=== PATIENT | male | born 1965 | race Caucasian/White ===

== ENCOUNTER 2019-10-18 19:09 | Inpatient (IN) | payer SELFPAY ==
--- NOTE | ~2019-10-18 | CT_ITS ---
EXAMINATION: CT abdomen pelvis w con DATE: 10/19/2019 20:30 INDICATION: Cirrhosis TECHNIQUE: Computed tomography (CT) of the abdomen and pelvis was performed with 100 mL Omnipaque-350 intravenous contrast. Automated exposure control and iterative reconstruction technique were employe d. The dose-length product was 220.78 mGy-cm. COMPARISON: None FINDINGS: Lung bases are clear. Heart size is normal. No pericardial or pleural effusion. Nasogastric tube tip in the body of the stomach. Heterogeneous attenuation of the liver with nodular surface contour likel y combination of cirrhosis and diffuse hepatic steatosis. The hepatic vasculature extends to the zenon ons of heterogeneous attenuation without evident architectural distortion to suggest malignant mass. Recanalization of the umbilical vein as well as dilation of the coronary vein and prominent gastroeso phageal collaterals consistent with secondary portal venous hypertension. Spleen remains normal in si ze with multiple small calcific a cyst consistent with old granulomatous disease. Gallbladder, pancre as, bilateral adrenal glands and kidneys are normal. No bowel obstruction. Normal appendix. There is diffuse wall thickening of the colon most prominent in the proximal colon which could be due to colit is or more likely hepatic colopathy. Small amount of ascites in the pelvis. Bladder is normal. No pat hologically enlarged abdominal or pelvic lymphadenopathy. Small amount of scattered nonhemodynamicall y significant atherosclerotic plaque along the aorta and several of its major branch vessels. Bones a re unremarkable. IMPRESSION: 1. Combination of cirrhosis and diffuse hepatic steatosis with secondary portal venous hypertension i ncluding recanalized umbilical vein and gastroesophageal collaterals. 2. Mild diffuse wall thickening of the colon most likely related to hepatic colopathy although differ ential includes colitis which could be infectious, inflammatory or ischemic in etiology. Reviewed, dictated and finalized at location A. ERCIAL LOAN ASSISTANT IMPRESSION: 1. Combination of cirrhosis and diffuse hepatic steatosis with secondary portal venous hypertension including recanalized umbilical vein and gastroesophageal collaterals. 2. Mild diffuse wall thickening of the colon most likely related to hepatic col opathy although differential includes colitis which could be infectious, inflam matory or ischemic in etiology.
--- NOTE | ~2019-10-18 | XR_ITS ---
EXAMINATION: XR abdomen NG/feed tube insert DATE: 10/18/2019 19:35 INDICATION: Nasogastric tube placement. TECHNIQUE: An upright view of the abdomen was obtained. COMPARISON: None. FINDINGS: There are no dilated loops of bowel. The nasogastric tube tip is in the stomach. The lower abdomen is excluded. IMPRESSION: 1. Nasogastric tube tip in the stomach. Reviewed, dictated and finalized at location A. ST TECHNICIAN
[2019-10-18 19:03] VITALS: BP 129/86; PULSE 128; RESP 24; TEMP 37.1; O2SAT 100
--- NOTE | 2019-10-18 19:13 | ED.NAVMDI ---
HPI - Nausea/Vomiting/Diarrhea General Chief complaint: Nausea/Vomiting/Diarrhea <Claude Benton MD - Last Filed: 10/20/19 00:32> Stated complaint: coffee ground emesis <Claude Benton MD - Last Filed: 10/20/19 00:32> Time Seen by Provider: 10/18/19 19:11 <Claude Benton MD - Last Filed: 10/20/19 00:32> Source: patient and RN notes reviewed <Claude Benton MD - Last Filed: 10/20/19 00:32> Mode of arrival: EMS <Claude Benton MD - Last Filed: 10/20/19 00:32> Limitations: no limitations <Claude Benton MD - Last Filed: 10/20/19 00:32> History of Present Illness HPI Narrative: Pt is a 54 y/o male who presents to the ED, via EMS, with c/o vomiting which began 2 days ago. He states his emesis is dark brown in color and seems to have blood present. Pt also reports jaundice, LOC, decreased appetite, SOB, a burning epigastric ABD pain, hot flashes, a subjective fever, a head injury, and bladder pain. He reports he has a PMHx of liver cirrhosis, but denies having an upper endoscopy done in the past due to this. He does state drinking a couple shots of alcohol this morning, which could have worsened his symptoms. He states he fell while walking to his door today and hit his head on the way down to the floor. Pt denies a PMHx of ulcers or esophageal varices. <Claude Benton MD - Last Filed: 10/20/19 00:32> MD elicited complaint: vomiting <Claude Benton MD - Last Filed: 10/20/19 00:32> Pertinent past history: other (liver cirrhosis) <Claude Benton MD - Last Filed: 10/20/19 00:32> Onset (ago): day(s) (2 days ago) <Claude Benton MD - Last Filed: 10/20/19 00:32> Description of vomiting: bloody and other (dark) <Claude Benton MD - Last Filed: 10/20/19 00:32> Associated abdominal pain: Yes <Claude Benton MD - Last Filed: 10/20/19 00:32> Location of pain: epigastric <Claude Benton MD - Last Filed: 10/20/19 00:32> Radiation: does not radiate <Claude Benton MD - Last Filed: 10/20/19 00:32> Pain consistency: constant <Claude Benton MD - Last Filed: 10/20/19 00:32> Quality: other (burning) <Claude Benton MD - Last Filed: 10/20/19 00:32> Relieving factors: none <Claude Benton MD - Last Filed: 10/20/19 00:32> Context: alcohol abuse <Claude Benton MD - Last Filed: 10/20/19 00:32> Related Data Home medications: Home Medications Medication Instructions Recorded Confirmed No Home Medications 10/19/19 10/19/19 <Claude Benton MD - Last Filed: 10/20/19 00:32> Allergies/Adverse reactions: Allergies Allergy/AdvReac Type Severity Reaction Status Date / Time No Known Allergies Allergy Unverified 10/09/17 01:04 <Claude Benton MD - Last Filed: 10/20/19 00:32> Review of Systems Review of Systems: All systems reviewed & are unremarkable except as noted in HPI and below <Claude Benton MD - Last Filed: 10/20/19 00:32> Constitutional: Constitutional: Reports fever(s) (subjective), Reports poor appetite (decreased) and Reports other (hot flashes) <Claude Benton MD - Last Filed: 10/20/19 00:32> Respiratory: Respiratory: Reports dyspnea <Claude Benton MD - Last Filed: 10/20/19 00:32> Gastrointestinal: Gastrointestinal: Reports abdominal pain (epigastric), Reports vomiting and Reports other (hematemesis) <Claude Benton MD - Last Filed: 10/20/19 00:32> Genitourinary: Genitourinary: Reports other (bladder pain) <Claude Benton MD - Last Filed: 10/20/19 00:32> Neurologic: Reports syncope and Reports other (head injury) <Claude Benton MD - Last Filed: 10/20/19 00:32> [facility] Past Medical History Medical History: Medical History (Updated 10/19/19 @ 21:58 by Imani Garrison NP) Anemia Asthma Cirrhosis Liver cancer <Claude Benton MD - Last Filed: 10/20/19 00:32
[2019-10-18] MEDS: PANTOPRAZOLE SODIUM IV 40 MG VIAL 80 MG IV PUSH (19:30)
[2019-10-18] MEDS: ONDANSETRON INJ 4 MG/2 ML VIAL ×2 (19:32→22:16)
[2019-10-18] MEDS: MORPHINE SULFATE 2 MG/ML INJ (19:32)
[2019-10-18] MEDS: SODIUM CHLORIDE 0.9% IV 1,000 ML 999 ML IV CONT ×2 (19:50→21:36)
[2019-10-18 19:56] LABS: Basophils Percent Auto 0.5 % (0.2-1.2); Hematocrit 29.6 % (42.0-52.0); Hemoglobin 9.9 g/dL (14.0-18.0); Immature Granulocyte Absolute 0.08 K/mm3 (0.00-0.031); Immature Granulocyte Percent A 0.9 % (0-0.5); Lymphocytes Absolute Auto 0.98 K/mm3 (0.9-3.2); Lymphocytes Percent Auto 11.2 % (18.3-44.2); Mean Corpuscular HGB Conc 33.4 g/dl (32-36); Mean Corpuscular Hemoglobin 34.3 pg (26-34); Mean Corpuscular Volume 102.4 fl (80-100); Mean Platelet Volume 10.4 fl (7.4-10.4); Monocytes Absolute Auto 0.8 K/mm3 (0.1-0.6); Monocytes Percent Auto 9.4 % (2.6-8.5); Neutrophils Absolute Auto 6.8 K/mm3 (1.3-6.7); Platelet Count Result 66 k/mm3 (150-375); Red Blood Count 2.89 M/mm3 (4.6-6.20); Red Cell Distribution Width 12.2 % (11.5-14.5); White Blood Count 8.8 K/mm3 (4.5-10.0)
[2019-10-18 20:04] LABS: INR 1.2; Prothrombin Time 15.3 Seconds (11.1-14.7)
[2019-10-18 20:05] LABS: Partial Thromboplastin Time 28.4 SECONDS (22.3-36.8)
[2019-10-18 20:18] LABS: Alanine Aminotransferase 85 U/L (4-50); Albumin Level 3.9 g/dL (3.5-5.1); Alkaline Phosphatase 264 U/L (38-126); Aspartate Amino Transferase 304 U/L (17-59); Bilirubin,Total 10.1 mg/dL (0.2-1.3); Blood Urea Nitrogen 19 mg/dL (9-20); Calcium 8.3 mg/dL (8.4-10.2); Carbon Dioxide 20 mmol/L (22-30); Chloride 88 mmol/L (98-107); Estimated CRCL calculation 104 ml/min; Estimated Glomerular Filt Rate > 60; Glucose 104 mg/dL (75-110); Lipase 72 U/L (23-300); Magnesium 1.4 mg/dL (1.6-2.3); Sodium 134 mmol/L (137-145)
[2019-10-18 20:30] VITALS: BP 130/79; PULSE 111; RESP 17; O2SAT 98
[2019-10-18 21:30] VITALS: BP 122/86; PULSE 107; RESP 19; O2SAT 99
[2019-10-18 22:15] VITALS: BP 143/91; PULSE 102; RESP 17; O2SAT 100
[2019-10-18] MEDS: SODIUM CHLORIDE 0.9% IV 50 ML 500 ML (23:20)
[2019-10-18] MEDS: PROMETHAZINE HCL 25 MG/ML AMPUL 12.5 MG IV PUSH (23:20)
[2019-10-18 23:23] LABS: Hematocrit 25.1 % (42.0-52.0); Hemoglobin 8.5 g/dL (14.0-18.0)
[2019-10-19] VITALS (47 sets, daily range): BP systolic 115–156; BP diastolic 35–124; PULSE 75–130; RESP 14–30; TEMP 36.4–36.6; O2SAT 95–100; BMI 14.6
[2019-10-19] MEDS: ONDANSETRON INJ 4 MG/2 ML VIAL IV PUSH ×3 (03:41→21:26)
[2019-10-19] MEDS: MORPHINE SULFATE 2 MG/ML INJ IV PUSH (03:41)
[2019-10-19] MEDS: SODIUM CHLORIDE 0.9% IV 50 ML 500 ML (03:46)
[2019-10-19] MEDS: LORAZEPAM INJ 2 MG/ML VIAL (04:36)
[2019-10-19 05:11] LABS: Hematocrit 23.4 % (42.0-52.0); Hemoglobin 8.1 g/dL (14.0-18.0)
[2019-10-19] MEDS: SODIUM CHLORIDE 0.9% IV 1,000 ML 150 ML IV CONT ×2 (05:22→22:37)
--- NOTE | 2019-10-19 07:19 | PC.NURSE ---
Called [facility] to check on status of bed. At this time he is currently waiting on a bed for transfer.
--- NOTE | 2019-10-19 07:22 | PC.NURSE ---
Report received from TRENTON Bill, to continue care. Preparing to contact [facility] regarding bed placement/availablility.
[2019-10-19] MEDS: PANTOPRAZOLE SODIUM IV 40 MG VIAL IV PUSH ×2 (07:41→22:40)
--- NOTE | 2019-10-19 13:26 | PC.NURSE ---
Pt called out, had spilled urinal on table and was incontinent of urine. IVF continue , NG tube continues to intermittent low wall suction, draining clear bloody fluid.
--- NOTE | 2019-10-19 15:18 | PC.NURSE ---
Called [facility] to check on bed. Pt is still waiting for bed. [facility] is not sure when they will receive bed orders.
[2019-10-19 16:09] LABS: Hematocrit 25.9 % (42.0-52.0); Hemoglobin 8.6 g/dL (14.0-18.0)
--- NOTE | 2019-10-19 17:03 | PC.NURSE ---
Dr. Barnett at bedside for consultation.
--- NOTE | 2019-10-19 17:05 | PC.NURSE ---
Floor unable to take report, states will call back.
--- NOTE | 2019-10-19 17:29 | WPDGICN ---
Assessment and Plan Additional Plan This is a 54-year-old white male patient I am asked to see at the request of the emergency room. Patient is known to have alcoholic cirrhosis of the liver. He has been boarding in the emergency room for almost 1 day. And is to be admitted for observation. He is pending transfer to [facility]. Patient reports vomiting that has been present for 2-3 days prior to presenting to the hospital. He states he has lost his appetite. He complains of a burning epigastric discomfort. He also complains rather diffuse abdominal pain but his history is very inconsistent. He denies having preop prior endoscopy. It is uncertain whether he has esophageal varices. On NG tube placed in the emergency room reveals blood tinged return. Patient states his past history includes a history of asthma. He is known to be anemic. And he knows he has cirrhosis. Patient takes nose medications at home. He is now on Protonix IV. He is also on an octreotide drip. Physical exam reveals him to be alert. He has scleral icterus. HEENT exam reveals some angiodysplasias on his neck. Lungs reveal clear. Heart is without murmur. Abdominal exam bowel sounds are present soft he has hepatomegaly with liver several finger breaths below the right l costal margin. Laboratory testing reveals total bilirubin 10.1 ,AST 304 ,ALT 85, alk-phos 264. Albumin 3.9 CBC WBC 8.8, hemoglobin 8.6, HCt 25.9, MCV 102. \prothrombin time 15.3 INR 1.2 per Impression 1. Alcoholism. 2. Cirrhosis of liver. 3. Anemia. Is macrocytic. 4. Markedly elevated liver function test. 5. Upper GI bleeding. Blood-tinged NG tube return is noted. Agree that patient may have internal bleeding. He has empirically been started on octreotide and PPI. We will continue these medications. Because of difficulty obtaining history and his apparent confusion serum ammonia level will be obtained. I am somewhat concerned he may have early hepatic encephalopathy. The cause of his heavy alcohol intake we will watch closely for signs of alcohol withdrawal. Transfer to [facility] is still pending and will be accomplished when bed becomes available at that institution. GI Consult Note Consult date/time: 10/19/19 17:29 HPI: Gregor Patel is a 54 year old male [facility] Past Medical History Medical History (Updated 10/19/19 @ 16:04 by Meredith Fernando MD) Anemia Asthma Cirrhosis Liver cancer Social History Social History (Updated 10/18/19 @ 19:30 by Della Dominguez) Smoking packs per day: 0.5 Smoking cigarettes per day: 10.0 Smoking status: Current every day smoker Tobacco type: cigarettes Alcohol intake: current Meds Home Medications and Allergies Allergies Allergy/AdvReac Type Severity Reaction Status Date / Time No Known Allergies Allergy Unverified 10/09/17 01:04 Vital Signs Vital Signs - 24 hr 10/18/19 19:03 10/18/19 20:30 10/18/19 21:30 Temperature 37.1 C Pulse Rate 128 H 111 H 107 H Respiratory Rate 24 H 17 19 Blood Pressure 129/86 130/79 122/86 Pulse Oximetry 100 98 99 10/18/19 22:15 10/19/19 01:31 10/19/19 03:46 Temperature Pulse Rate 102 H 101 H 96 Respiratory Rate 17 18 18 Blood Pressure 143/91 H 136/74 125/99 H Pulse Oximetry 100 97 98 10/19/19 06:15 10/19/19 06:31 10/19/19 06:46 Temperature Pulse Rate 102 H 91 95 Respiratory Rate 17 17 16 Blood Pressure 121/71 115/72 120/72 Pulse Oximetry 98 10/19/19 07:00 10/19/19 07:15 10/19/19 07:16 Temperature Pulse Rate 92 104 H 92 Respiratory Rate 16 17 16 Blood Pressure 122/76 Pulse Oximetry 10/19/19 07:17 10/19/19 07:31 10/19/19 07:46 Temperature Pulse Rate 93 90 88 Respiratory Rate 16 16 14 Blood Pressure 123/75 116/71 Pulse Oximetry 10/19/19 08:03 10/19/19 08:15 10/19/19 08:32 Temperature Pulse Rate 87 93 91 Respiratory Rate 15 14 16 Blood Pressure Pulse Oximetry
[2019-10-19 18:23] LABS: Ammonia 52 umol/L (9-30)
[2019-10-19] MEDS: LACTATED RINGERS 1,000 ML 150 ML IV CONT (18:35)
[2019-10-19] MEDS: LORAZEPAM INJ 2 MG/ML VIAL 1 MG IV PUSH (21:30)
--- NOTE | 2019-10-19 21:47 | PM.IMHP ---
H&P: HPI History of Present Illness Chief complaint: Upper GI bleed/cirrhosis Narrative: Gregor Patel is a 54 year old male who typically sees a GI specialist at [facility]. The patient tells me that he has liver cancer and cirrhosis. He is receiving his care from [facility]. The patient came to the emergency room with complaints of vomiting dark emesis for about 2 days. He complains of a burning epigastric area, hot flashes, fever, and that he fell and hit his head. Patient states he is not aware of any esophageal varices. He had NG tube was placed and has drained approximately 200 cc of bright red blood. The patient continues to complain of some nausea vomiting. The patient was held in the emergency room for 20 hours awaiting a bed at [facility]. The patient initially was going to go to ICU bed at [facility]. However all beds were full there. Patient was downgraded to medical floor status. He had been on octreotide drip and given Protonix IV. Per protocol patient is to be admitted observation to the floor awaiting transfer to [facility] Medical Floor. I personally discussed this patient with Dr. montiel as ER has done as well. Dr. montiel has seen the patient and agrees to see the patient while he is here but recommends that the patient be transferred to [facility]. Patient's H&H is 8.6 and 25.9 today. The patient has some hand tremors instead he had his last shot of vodka just prior to coming to the emergency room. Which was approximately 20 hours ago. The patient is somewhat restless and a poor historian. The patient tells me that he wants to be a do not resuscitate. However is unreliable is he is somewhat confused at this time. Date of service is 10/19/2019. Patient is jaundiced. Platelet count from yesterday was 66. I spoke to the missile tracking technician here about transferring the patient to the intensive care unit because I was informed that only octreotide can be given in ICU. However after reviewing the policy the sign shop supervisor notified me that octreotide can be given on the floor as well. The patient does not need to go to the intensive care unit at this time since his vital signs are stable. He does not need to go to ICU for octreotide. Review of Systems Review of Systems: Narrative: Patient is jaundiced and he is a poor historian. All systems reviewed & are unremarkable except as noted in HPI and below Constitutional: Constitutional: Reports as per HPI and Reports no additional constitutional complaints Eyes: Eyes: Reports as per HPI and Reports no additional eye complaints Comments: Jaundice ENT: Reports system reviewed and no additional complaints, except as documented and Reports Normal hearing present Cardiovascular: Cardiovascular: Reports no additional cardiovascular complaints Respiratory: Respiratory: Reports no additional respiratory complaints and Reports no additional respiratory complaints Gastrointestinal: Gastrointestinal: Reports as per HPI, Reports no additional gastrointestinal complaints, Reports bloating, Reports coffee ground emesis, Reports dyspepsia, Reports heartburn, Reports nausea, Reports vomiting and Reports hematemesis Musculoskeletal: Musculoskeletal: Reports no additional musculoskeletal complaints Integumentary/Breasts: Skin/Breast: Reports system reviewed and no additional complaints, except as docu and Reports as per HPI Neurologic: Reports system reviewed and no additional complaints, except as documented, Reports as per HPI and Reports Normal hearing present Psychiatric: Psychiatric: Reports no additional psychiatric complaints and Reports as per HPI Endocrine: Endocrine: Reports no additional endocrine complaints Hematologic/Lymphatic: Hematologic/Lymphatic: Reports no additional hematologic/lymphatic complaints Allergic/Immunologic: Allergic/Immunologic: Reports no additional allergic/immunologic complaints PMFSH Past M
[2019-10-19 22:19] LABS: Hematocrit 24.1 % (42.0-52.0); Hemoglobin 8.1 g/dL (14.0-18.0); Immature Platelet Fraction Pct 6.4 % (0.9-11.2); Mean Corpuscular HGB Conc 33.6 g/dl (32-36); Mean Corpuscular Hemoglobin 35.2 pg (26-34); Mean Corpuscular Volume 104.8 fl (80-100); Mean Platelet Volume 10.8 fl (7.4-10.4); Platelet Count Result 47 k/mm3 (150-375); Red Cell Distribution Width 12.4 % (11.5-14.5); White Blood Count 6.3 K/mm3 (4.5-10.0)
[2019-10-19 22:31] LABS: Ammonia 37 umol/L (9-30)
[2019-10-19 22:35] LABS: Blood Urea Nitrogen 11 mg/dL (9-20); Calcium 8.1 mg/dL (8.4-10.2); Carbon Dioxide 27 mmol/L (22-30); Chloride 95 mmol/L (98-107); Estimated CRCL calculation 87 ml/min; Estimated Glomerular Filt Rate > 60; Glucose 99 mg/dL (75-110); Potassium 3.1 mmol/L (3.4-5.0); Sodium 137 mmol/L (137-145)
[2019-10-19] MEDS: THIAMINE HCL 200 MG/2 ML VIAL 100 MG IV PUSH (22:39)
[2019-10-19] MEDS: LACTULOSE ENEMA 200 GM/1,000 ML ENEMA RECTAL (22:43)
[2019-10-19] MEDS: FOLIC ACID 1 MG/0.2 ML INJ IV PUSH (22:43)
[2019-10-20 05:45] LABS: Basophils Percent Auto 0.6 % (0.2-1.2); Eosinophils Absolute Auto 0.1 K/mm3 (0-0.3); Eosinophils Percent Auto 1.5 % (0-4.4); Hematocrit 24.5 % (42.0-52.0); Hemoglobin 8.1 g/dL (14.0-18.0); Immature Granulocyte Absolute 0.04 K/mm3 (0.00-0.031); Immature Granulocyte Percent A 0.6 % (0-0.5); Immature Platelet Fraction Pct 7.1 % (0.9-11.2); Lymphocytes Absolute Auto 0.79 K/mm3 (0.9-3.2); Lymphocytes Percent Auto 12.8 % (18.3-44.2); Mean Corpuscular HGB Conc 33.1 g/dl (32-36); Mean Corpuscular Hemoglobin 35.2 pg (26-34); Mean Corpuscular Volume 106.5 fl (80-100); Mean Platelet Volume 11.4 fl (7.4-10.4); Monocytes Absolute Auto 0.7 K/mm3 (0.1-0.6); Monocytes Percent Auto 11.3 % (2.6-8.5); Neutrophils Absolute Auto 4.5 K/mm3 (1.3-6.7); Neutrophils Percent Auto 73.2 % (45.5-73.1); Platelet Count Result 51 k/mm3 (150-375); Red Cell Distribution Width 12.6 % (11.5-14.5); White Blood Count 6.2 K/mm3 (4.5-10.0)
[2019-10-20] MEDS: LORAZEPAM INJ 2 MG/ML VIAL 1 MG IV PUSH ×4 (05:47→20:07)
[2019-10-20 06:02] LABS: Alanine Aminotransferase 71 U/L (4-50); Albumin Level 3.2 g/dL (3.5-5.1); Alkaline Phosphatase 187 U/L (38-126); Aspartate Amino Transferase 210 U/L (17-59); Bilirubin,Total 7.6 mg/dL (0.2-1.3); Blood Urea Nitrogen 9 mg/dL (9-20); Carbon Dioxide 27 mmol/L (22-30); Chloride 97 mmol/L (98-107); Estimated CRCL calculation 87 ml/min; Estimated Glomerular Filt Rate > 60; Glucose 86 mg/dL (75-110); Magnesium 1.4 mg/dL (1.6-2.3); Potassium 3.1 mmol/L (3.4-5.0); Sodium 138 mmol/L (137-145)
[2019-10-20 06:03] VITALS: BP 113/62; PULSE 81; RESP 16; TEMP 36.8; O2SAT 95
[2019-10-20] MEDS: SODIUM CHLORIDE 0.9% IV 1,000 ML 150 ML IV CONT (06:47)
--- NOTE | 2019-10-20 08:11 | WPDGIPROGNO ---
Progress Note: A&P Additional Plan Patient alert this morning. He has some dysarthria. Often difficult to understand speech. He now reports history of having cancer of the liver. On physical exam NG tube now clear. Vital signs stable. Lungs are clear. Heart without murmur. Abdomen is soft. Nontender. Hepatomegaly appreciated. CT scan is consistent with cirrhosis. Portal hypertension identified. No masses evident. Colon thickening appears to be nonspecific on CT scan. Laboratory testing hemoglobin of 8.1. Hematocrit 24. MCV 106. Protime 15.3. INR 1.2. LFTs. Total bilirubin 7.6. AST 210. ALT 71. Alk-phos 187. Ammonia is 37. Slightly elevated. Plan is to discontinue NG tube. Allow full liquid diet. Advance to low-salt diet as tolerated. Lactulose will be started for possible early hepatic encephalopathy. Continue to monitor hemoglobin closely. Patient will remain on proton pump inhibitor. Anticipate transfer to [facility] today. If patient remains in the hospital an EGD will be considered. Subjective Date/time seen: 10/20/19 08:11 Objective Data Vital Signs Vital Signs: Vital Signs - 24 hr 10/19/19 08:15 10/19/19 08:32 10/19/19 08:46 Temperature Pulse Rate 93 91 85 Pulse Rate [Left Radial] Respiratory Rate 14 16 14 Blood Pressure 127/79 Pulse Oximetry 10/19/19 09:02 10/19/19 09:16 10/19/19 09:46 Temperature Pulse Rate 113 H 97 83 Pulse Rate [Left Radial] Respiratory Rate 28 H 18 14 Blood Pressure 131/84 127/79 132/83 Pulse Oximetry 10/19/19 10:39 10/19/19 10:47 10/19/19 11:01 Temperature Pulse Rate 84 99 84 Pulse Rate [Left Radial] Respiratory Rate 16 23 H 17 Blood Pressure 135/90 Pulse Oximetry 97 100 10/19/19 11:31 10/19/19 11:33 10/19/19 12:02 Temperature Pulse Rate 82 87 99 Pulse Rate [Left Radial] Respiratory Rate 16 17 21 H Blood Pressure 138/74 115/35 L Pulse Oximetry 10/19/19 12:24 10/19/19 12:31 10/19/19 12:46 Temperature Pulse Rate 80 105 H 96 Pulse Rate [Left Radial] Respiratory Rate 14 22 H 17 Blood Pressure 144/76 H 138/77 Pulse Oximetry 10/19/19 12:47 10/19/19 13:07 10/19/19 13:17 Temperature Pulse Rate 83 85 130 H Pulse Rate [Left Radial] Respiratory Rate 16 18 30 H Blood Pressure Pulse Oximetry 10/19/19 13:24 10/19/19 13:30 10/19/19 13:31 Temperature Pulse Rate 113 H 94 101 H Pulse Rate [Left Radial] Respiratory Rate 18 20 19 Blood Pressure 156/85 H 140/85 Pulse Oximetry 98 10/19/19 14:00 10/19/19 14:02 10/19/19 14:17 Temperature Pulse Rate 91 91 83 Pulse Rate [Left Radial] Respiratory Rate 20 20 17 Blood Pressure Pulse Oximetry 99 97 96 10/19/19 14:31 10/19/19 14:46 10/19/19 15:04 Temperature Pulse Rate 86 89 76 Pulse Rate [Left Radial] Respiratory Rate 16 16 15 Blood Pressure 130/78 126/79 Pulse Oximetry 100 98 10/19/19 15:23 10/19/19 15:31 10/19/19 15:46 Temperature Pulse Rate 75 122 H 94 Pulse Rate [Left Radial] Respiratory Rate 15 24 H 15 Blood Pressure 153/124 H 133/85 Pulse Oximetry 99 10/19/19 16:01 10/19/19 16:16 10/19/19 17:48 Temperature 36.6 C Pulse Rate 90 83 103 H Pulse Rate [Left Radial] Respiratory Rate 19 19 16 Blood Pressure 146/86 H 136/88 139/80 Pulse Oximetry 97 10/19/19 20:00 10/19/19 22:21 10/20/19 06:03 Temperature 36.4 C 36.8 C Pulse Rate 103 H 90 81 Pulse Rate [Left Radial] 88 Respiratory Rate 16 18 16 Blood Pressure 126/74 113/62 Pulse Oximetry 97 95 95 Intake/Output Intake/Output: Intake & Output 10/17/19 10/18/19 10/19/19 10/20/19 23:59 23:59 23:59 23:59 Intake Total 2100 1300 1000 Output Total 1999 400 Balance 2100 -700 600 Meds/Results Medications: Active Medications Generic Name Dose Route Start Last Admin Trade Name Freq PRN Reason Stop Dose Admin Folic Acid 1 mg 10/20/19 09:00 Folic Acid Inj IV PUSH [facility]
[2019-10-20] MEDS: PANTOPRAZOLE SODIUM IV 40 MG VIAL IV PUSH (08:14)
[2019-10-20] MEDS: THIAMINE HCL 200 MG/2 ML VIAL 100 MG IV PUSH (08:14)
[2019-10-20] MEDS: FOLIC ACID 1 MG/0.2 ML INJ IV PUSH (08:21)
[2019-10-20] MEDS: LACTULOSE 20 GM/30 ML UDC PO (08:23)
--- NOTE | 2019-10-20 10:06 | PM.IMPN ---
Progress Note: A&P Assessment and Plan (1) Acute upper gastrointestinal bleeding: Code(s): K92.2 - Gastrointestinal hemorrhage, unspecified Status: Acute Assessment and Plan: The patient is awaiting a medical bed at [facility]. He was downgraded from ICU to medical floor status per ED physician. Patient remains on octreotide. GI following while here. His vital signs remain stable. We will continue to monitor the patient closely. Continue with the Protonix IV and octreotide drip. Awaiting bed at [facility]. Old records requested. (2) Cirrhosis: Qualifiers: Ascites presence: unspecified Hepatic cirrhosis type: alcoholic cirrhosis Qualified Code(s): K70.30 - Alcoholic cirrhosis of liver without ascites Code(s): K74.60 - Unspecified cirrhosis of liver Status: Acute Assessment and Plan: Awaiting bed at [facility] for his specialist there. (3) Thrombocytopenia: Code(s): D69.6 - Thrombocytopenia, unspecified Status: Acute Assessment and Plan: Plt count low but stable. May consider giving the patient platelets if needed due to active bleed and low platelets. Transfuse if evidence of recurrent bleeding. (4) Liver cancer: Code(s): C22.9 - Malignant neoplasm of liver, not specified as primary or secondary Status: Chronic Assessment and Plan: Patient tells me that his liver cancer and asking to be a DNR yesterday. Not felt he can make appropriate decisions for himself. Old records from [facility] ordered. (5) Anemia: Code(s): D64.9 - Anemia, unspecified Status: Chronic Assessment and Plan: Acute and chronic anemia. Hgb 8.1 today. Hgb also remaining stable. Continue to monitor H&H and platelets. (6) Alcoholism: Code(s): F10.20 - Alcohol dependence, uncomplicated Status: Acute Assessment and Plan: CIWA was as high as 14 but better this morning. Continue to monitor the CIWA scale. Ativan available as needed. Continue folic acid and thiamine. Subjective Date/time seen: 10/20/19 10:06 Interval history: 54yo male with alcoholic cirrhosis here for nausea, vomiting and GI bleed. Assuming care. Chart reviewed. Patient more oriented this morning. He denies feeling confused. NG tube has been removed. He has not eaten yet. He denies any nausea or vomiting since the NG tube has been removed. He denies any chest pain. He initially denies any abdominal pain but says he had pain yesterday but it is much improved today. He still has some mild abdominal discomfort. He has chronic low back pain. Requesting discharge. Exam Narrative: Exam Narrative: Gen -thin male in NARD sitting up at the side of the bed Chest - CTA bilaterally, nml RR CV - RRR S1/S2 Abd -soft. Scaphoid. Voluntary guarding but improves with distraction. Positive bowel sounds. No obvious organomegaly by percussion. Ext - No pedal edema Neuro - Alert and oriented x4. No focal weakness. Speech is mildly dysarthric. Psych - pleasant and cooperative Skin - jaundice Objective Data Vital Signs Vital Signs: Vital Signs - 24 hr 10/19/19 10:39 10/19/19 10:47 10/19/19 11:01 Temperature Pulse Rate 84 99 84 Pulse Rate [Left Radial] Respiratory Rate 16 23 H 17 Blood Pressure 135/90 Pulse Oximetry 97 100 10/19/19 11:31 10/19/19 11:33 10/19/19 12:02 Temperature Pulse Rate 82 87 99 Pulse Rate [Left Radial] Respiratory Rate 16 17 21 H Blood Pressure 138/74 115/35 L Pulse Oximetry 10/19/19 12:24 10/19/19 12:31 10/19/19 12:46 Temperature Pulse Rate 80 105 H 96 Pulse Rate [Left Radial] Respiratory Rate 14 22 H 17 Blood Pressure 144/76 H 138/77 Pulse Oximetry 10/19/19 12:47 10/19/19 13:07 10/19/19 13:17 Temperature Pulse Rate 83 85 130 H Pulse Rate [Left Radial] Respiratory Rate 16 18 30 H Blood Pressure Pulse Oximetry
[2019-10-20] MEDS: MAGNESIUM OXIDE 400 MG TABLET PO (10:54)
[2019-10-20] MEDS: POTASSIUM CHLORIDE 20 MEQ TABLET 40 MEQ PO (11:08)
[2019-10-20 14:00] VITALS: BP 134/76; PULSE 90; RESP 20; TEMP 36.6; O2SAT 98
[2019-10-20 19:46] LABS: Hematocrit 24.1 % (42.0-52.0); Hemoglobin 8.2 g/dL (14.0-18.0)
[2019-10-20 20:00] VITALS: PULSE 88
[2019-10-20] MEDS: LORAZEPAM INJ 2 MG/ML VIAL IV PUSH (21:45)
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
[2019-10-20 22:00] VITALS: BP 111/72; PULSE 78; RESP 17; TEMP 36.7; O2SAT 98
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
--- NOTE | 2019-10-20 22:23 | PC.NURSE ---
FAMILY NOTIFIED PT MOVED TO ICU 4
--- NOTE | 2019-10-20 22:48 | PC.NURSE ---
pt transfered from [address] [place] [address] for alcohol withdrawl. pt aggitated taking multiple redirection to keep him in bed. pt placed in restraints for safety precedex drip started
[2019-10-20 23:22] VITALS: PULSE 70; O2SAT 99
[2019-10-21] VITALS (13 sets, daily range): BP systolic 90–130; BP diastolic 63–84; PULSE 51–99; RESP 10–17; TEMP 35.1–37.1; O2SAT 90–100; BMI 14.6
[2019-10-21 00:58] LABS: Hematocrit 23.3 % (42.0-52.0); Hemoglobin 7.9 g/dL (14.0-18.0)
[2019-10-21] MEDS: PANTOPRAZOLE SODIUM IV 40 MG VIAL IV PUSH ×3 (03:49→22:28)
[2019-10-21 04:31] LABS: Hematocrit 23.2 % (42.0-52.0); Hemoglobin 7.8 g/dL (14.0-18.0)
[2019-10-21 04:57] LABS: Blood Urea Nitrogen 4 mg/dL (9-20); Calcium 7.5 mg/dL (8.4-10.2); Carbon Dioxide 30 mmol/L (22-30); Chloride 95 mmol/L (98-107); Estimated CRCL calculation 105 ml/min; Estimated Glomerular Filt Rate > 60; Glucose 127 mg/dL (75-110); Potassium 2.7 mmol/L (3.4-5.0); Sodium 131 mmol/L (137-145)
[2019-10-21] MEDS: SODIUM CHLORIDE 0.9% IV 1,000 ML 70 ML IV CONT ×3 (05:52→23:00)
[2019-10-21] MEDS: THIAMINE HCL 200 MG/2 ML VIAL 100 MG IV PUSH (08:12)
[2019-10-21] MEDS: FOLIC ACID 1 MG/0.2 ML INJ IV PUSH (08:13)
--- NOTE | 2019-10-21 08:38 | WPDANESEPPF ---
Anes - Initial Pre Proc Eval Procedure: Operation Date: 10/21/19 09:00 Proposed Procedures p Esophagogastroduodenoscopy - Kurt Barnett MD Date/Time: 10/21/19 08:38 Surgeon: Jesus Claire MD Pre Op Diagnosis: Upper GI bleed/cirrhosis Patient Data Age: 54 Gender: M Height: 1.7 m Weight: 42.5 kg Last Vital Signs Temp 37.1 C 10/21/19 06:00 Pulse 80 10/21/19 06:00 Resp 16 10/21/19 06:00 BP 116/75 10/21/19 06:00 Pulse Ox 100 10/21/19 06:00 Allergies Allergy/AdvReac Type Severity Reaction Status Date / Time No Known Allergies Allergy Unverified 10/09/17 01:04 Home Medications Medication Instructions Recorded Confirmed Type No Home Medications 10/19/19 10/19/19 History Laboratory Tests 10/20/19 10/21/19 10/21/19 19:33 00:27 04:12 Hgb 8.2 g/dL L g/dL 7.9 g/dL L g/dL 7.8 g/dL L g/dL (14.0-18.0) (14.0-18.0) (14.0-18.0) Hct 24.1 % L % 23.3 % L % 23.2 % L % (42.0-52.0) (42.0-52.0) (42.0-52.0) Sodium Potassium Chloride Carbon Dioxide BUN Creatinine Estim Creat Clear Calc Estimated GFR Glucose Calcium 10/21/19 04:12 Hgb Hct Sodium 131 mmol/L L mmol/L (137-145) Potassium 2.7 mmol/L L* mmol/L (3.4-5.0) Chloride 95 mmol/L L mmol/L (98-107) Carbon Dioxide 30 mmol/L mmol/L (22-30) BUN 4 mg/dL L D mg/dL (9-20) Creatinine 0.40 mg/dL L mg/dL (0.7-1.3) Estim Creat Clear Calc 105 ml/min ml/min Estimated GFR > 60 (59 - ) Glucose 127 mg/dL H mg/dL (75-110) Calcium 7.5 mg/dL L mg/dL (8.4-10.2) Patient hx anesthesia problems: none Family hx anesthesia problems: none PMFSH Past Medical History Medical History (Updated 10/21/19 @ 08:42 by Jn Lemon MD) Acute upper gastrointestinal bleeding Alcoholism Anemia Asthma Cirrhosis Cirrhosis Liver cancer Thrombocytopenia Surgical History Surgical History (Updated 10/19/19 @ 21:58 by Imani Garrison NP) No significant past surgical history Family History Family History (Updated 10/19/19 @ 21:59 by Imani Garrison NP) Unknown Unknown family medical history Social History Social History (Updated 10/19/19 @ 21:59 by Imani Garrison NP) Social History: The patient tells me that he is and that he has 1 son that lives in [facility]. The patient tells me that he wants to be a DNR however he has intermittent confusion right now. He tells me drinks a pt of vodka a day. Last drink was yesterday morning. Smoking packs per day: 1 Smoking cigarettes per day: 20.0 Years smoked: 40 Smoking pack-years: 40.00 Smoking status: Current every day smoker Tobacco type: cigarettes Second hand tobacco smoke exposure: No Alcohol intake: current Drinks per week: 7 Substance use: current Substance use type: marijuana Living arrangements: alone Gender identity (if verbalized by the patient): Male Spiritual care concerns: No Agree to blood products: Yes Anes - Eval Final PreProcedure Day of Procedure 10/21/19 08:38 Patient weight: cachectic Heart: regular rate and rhythm Lungs: rhonchi Airway: Mallampati scale class II Neurological: confused Last oral intake: >/= 8 hours ASA classification: IV Emergent: no Anesthetic plan: proceed Anesthesia type and monitoring: general ETT Informed Consent: The patient's anesthetic plan and its attendant risks and benefits were discussed with the patient/family/POA. Questions were solicited and answers provided to the satisfaction of the patient/family/POA.
[2019-10-21 09:30] LABS: Magnesium 1.2 mg/dL (1.6-2.3)
--- NOTE | 2019-10-21 10:24 | PM.OP ---
Procedure Note - Brief Procedure Note - Brief Date of procedure: 10/21/19 Pre-op diagnosis: Upper GI bleed/cirrhosis Surgeon: Kurt Barnett MD Procedure EGD with banding of esophageal varices. Pre procedure diagnosis. Upper GI bleeding. And cirrhosis. Postop diagnosis. Esophageal varices. Description of procedure. Informed consent for the procedure is obtained from the patient. The risks benefits alternatives indications are discussed thoroughly. Is uncertain patient has comprehension and consent is obtained with myself and radiologic technologist chief. The risks include but are not limited to adverse reaction to medications including allergies the risk of bleeding possible need for transfusion the risk perforation possible need for surgery and the risk for missed pathology. Instrument is the [employer] video endoscope. Description of procedure. Endoscope is passed to the esophagus. In the distal half of the esophagus 2 columns of distended varices is are noted. No active bleeding is evident at this time. Squamocolumnar junction is intact at 40cm. The stomach is seen in its entirety including U-turn reveal some retained food. No blood is encountered. No ulcers are noted. Pylorus is patent. Traversed easily by the endoscope. The duodenum reveals a normal bulb and sweep 2nd portion. After endoscopy is completed 2 esophageal bands are placed in the distal most portion of the esophagus. Overlying this esophageal varices. Impression 1. Esophageal varices. These are not bleeding now but appear to have been the source of recent GI blood loss. Now status post banding. 2. Retained gastric contents. This suggest delayed gastric emptying. Liquid diet is suggested for brief interval. Plan is to taper dose of octreotide. 1/2 previous dose will be given today and hopefully discontinue this medication tomorrow if no additional bleeding. Patient current we sedated. When patient is aroused and able to eat liquid diet is started initially and then advance to soft diet as tolerated. Consider follow-up banding of esophageal varices in 2 months. Beta-kevin prophylaxis for additional bleeding is to be considered.
--- NOTE | 2019-10-21 12:06 | PCDIET ---
Discussed nutritional concerns during rounds. Plan to increase diet to full liquid later today per GI as Precedex is tapered. Agree with recommendation. Recommend holding off on supplements at this time due to potential risk for refeeding syndrome and gradually incorporating/increasing over the next few days. If plan changes, continue to recommend previous PPN.
--- NOTE | 2019-10-21 14:08 | WPDCNINT ---
Assessment and Plan Assessment and plan (1) Alcohol dependence with withdrawal: Code(s): F10.239 - Alcohol dependence with withdrawal, unspecified Status: Acute Assessment and Plan: Patient was started on Precedex as IV Ativan was not helping withdrawal symptoms. This morning patient is noted to be bradycardic and very poorly responsive. Precedex has slowly been weaned down throughout the day. will attempt to see if patient can be weaned off of the Precedex and can go back to CIWA protocol. He will be placed on thiamine and folate. (2) Acute upper gastrointestinal bleeding: Code(s): K92.2 - Gastrointestinal hemorrhage, unspecified Status: Acute Assessment and Plan: The patient is awaiting a medical bed at [facility]. Patient remains on octreotide and protonix drip . s/p EGD today with no active bleeding and banding of 2 nonbleeding varices. (3) Cirrhosis: Qualifiers: Ascites presence: unspecified Hepatic cirrhosis type: alcoholic cirrhosis Qualified Code(s): K70.30 - Alcoholic cirrhosis of liver without ascites Code(s): K74.60 - Unspecified cirrhosis of liver Status: Acute Assessment and Plan: patient has chronic alcoholic liver cirrhosis. His liver enzymes however are not very elevated. His bilirubin is elevated to 7.6. (4) Thrombocytopenia: Code(s): D69.6 - Thrombocytopenia, unspecified Status: Acute Assessment and Plan: Plt count low but stable. which is typically seen with alcoholic liver cirrhosis. (5) Liver cancer: Code(s): C22.9 - Malignant neoplasm of liver, not specified as primary or secondary Status: Chronic Assessment and Plan: Unsure about liver cancer diagnosis. Records elevated from [facility]. (6) Anemia: Code(s): D64.9 - Anemia, unspecified Status: Chronic Assessment and Plan: Acute and chronic anemia. Hgb 7.8 today. s/p EGD with no active bleeding . Continue to monitor H&H and platelets. 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 during his evaluation in the emergency room an NG tube was placed into 100 cc of blood was suctioned out. Patient was started on a Protonix and octreotide drip as he has history of continued alcohol abuse and questionable liver cirrhosis. Patient was transferred to the floor on the drips with a stable H&H. Yesterday the NG tube was removed and patient was started on clear liquid diet. Overnight patient developed alcohol withdrawal symptoms with agitation , restlessness and tachycardia. There was a point where a code purple had to be called because he was trying to hit the staff. Patient had already received 3 mg of IV push Ativan without any result. Patient was transferred to ICU and placed on Precedex drip to help with alcohol withdrawal.. On my assessment today morning in the ICU patient is sedated on a Precedex drip. He is poorly responsive. The plan is to get an EGD to look for the source of bleeding. Precedex drip is being weaned down. Review of Systems Review of Systems: ROS unobtainable: unobtainable due to mental status PMFSH Past Medical History Medical History Acute upper gastrointestinal bleeding Alcoholism Anemia Asthma Cirrhosis Cirrhosis Liver cancer Thrombocytopenia Surgical History Surgical History No significant past surgical history Family History Family History Unknown Unknown family medical history Social History Social History Social History:
[2019-10-21 18:34] LABS: Albumin Level 3.1 g/dL (3.5-5.1); Blood Urea Nitrogen 3 mg/dL (9-20); Calcium 7.7 mg/dL (8.4-10.2); Carbon Dioxide 28 mmol/L (22-30); Chloride 94 mmol/L (98-107); Estimated CRCL calculation 87 ml/min; Estimated Glomerular Filt Rate > 60; Glucose 86 mg/dL (75-110); Phosphorus 2.6 mg/dL (2.5-4.5); Potassium 3.8 mmol/L (3.4-5.0); Sodium 132 mmol/L (137-145)
--- NOTE | 2019-10-21 20:01 | PM.IMPN ---
Progress Note: A&P Assessment and Plan (1) Alcohol dependence with withdrawal: Code(s): F10.239 - Alcohol dependence with withdrawal, unspecified Status: Acute Assessment and Plan: Patient develop agitation felt to be alcohol withdrawal. He was moved to the ICU and placed on a Precedex drip. Calmer this evening. Wean Precedex as toelrated. Consider CT brain if persistent altered mental status. (2) Acute upper gastrointestinal bleeding: Code(s): K92.2 - Gastrointestinal hemorrhage, unspecified Status: Acute Assessment and Plan: The patient is awaiting a medical bed at [facility]. He was downgraded from ICU to medical floor status per ED physician. Patient had EGD today showing varices s/p banding. Continue with the Protonix IV and octreotide drip. Awaiting bed at [facility]. Appreciate GI input (3) Cirrhosis: Qualifiers: Ascites presence: unspecified Hepatic cirrhosis type: alcoholic cirrhosis Qualified Code(s): K70.30 - Alcoholic cirrhosis of liver without ascites Code(s): K74.60 - Unspecified cirrhosis of liver Status: Acute Assessment and Plan: [place] patient with alcoholic cirrhosis. CT scan showing combination of cirrhosis and diffuse hepatic steatosis with secondary portal venous hypertension including recanalized umbilical vein and gastroesophageal collaterals. There is also mild diffuse wall thickening of the colon most likely related to hepatic colopathy. Patient is tender on exam so should consider colitis. Currently on Rocephin. Will add Flagyl. Awaiting bed at [facility] for his specialist there. Continue Lactulose. (4) Thrombocytopenia: Code(s): D69.6 - Thrombocytopenia, unspecified Status: Acute Assessment and Plan: Plt count low but stable. Transfuse if evidence of recurrent bleeding. Repeat plt count in the morning. (5) Liver cancer: Code(s): C22.9 - Malignant neoplasm of liver, not specified as primary or secondary Status: Chronic Assessment and Plan: Patient may have liver cancer. Is followed by GI specialists at [facility]. (6) Anemia: Code(s): D64.9 - Anemia, unspecified Status: Chronic Assessment and Plan: Acute and chronic anemia. Acute process related to above. Hgb 7.8 today. Hgb low but stable in the 7-8 range. Appears to have stopped bleeding. Continue to monitor H&H and platelets. (7) Alcoholism: Code(s): F10.20 - Alcohol dependence, uncomplicated Status: Acute Assessment and Plan: Will need to educate the patient about the benefits of abstaining from alcohol when able. Continue folic acid and thiamine. As above. Subjective Date/time seen: 10/21/19 20:01 Interval history: 54yo male with alcoholic cirrhosis here for nausea, vomiting and GI bleed. Patient became agiated overnight and moved to the ICU for Precedex treatment. Patient also had EGD today with banding of varices. He is currently arousable but confused and thus unable to provide hx. Review of Systems Review of Systems: ROS unobtainable: unobtainable due to mental status Exam Narrative: Exam Narrative: Gen -thin male in NARD lying semi-recumbent in bed Chest - clear anteriorly. nml RR CV - RRR S1/S2, tele showing no significant dysrhythmias Abd -soft. Scaphoid. Voluntary guarding. Positive bowel sounds. - Sullivan secured with orange yellow urine in the bag Ext - No pedal edema Neuro - occas tremors. arouses and mumbles but mostly somnolent Skin - jaundice Objective Data Vital Signs Vital Signs: Vital Signs - 24 hr 10/20/19 22:00 10/20/19 23:22 10/21/19 00:00 Temperature 98.0 F 98.6 F Pulse Rate 78 70 62 Pulse Rate [Left Radial] 78 62 Respiratory Rate 17 15 Blood Pressure 111/72 130/84 Pulse Oximetry 98 99 99 10/21/19 02:00 10/21/19 04:00 10/21/19 06:00 Temperature 98.3 F 98.1 F 98.8 F Pulse Rate
[2019-10-21] MEDS: metroNIDAZOLE 500 MG/ISO 100ML 500 MG/100 ML BAG 100 MG IVPB (23:04)
[2019-10-22] VITALS (10 sets, daily range): BP systolic 100–130; BP diastolic 60–84; PULSE 57–109; RESP 16–20; TEMP 36.1–37.2; O2SAT 95–100
[2019-10-22 04:35] LABS: Basophils Absolute Auto 0.1 K/mm3 (0.0-0.1); Eosinophils Absolute Auto 0.2 K/mm3 (0-0.3); Eosinophils Percent Auto 2.1 % (0-4.4); Hemoglobin 9.5 g/dL (14.0-18.0); Immature Granulocyte Absolute 0.06 K/mm3 (0.00-0.031); Immature Granulocyte Percent A 0.8 % (0-0.5); Immature Platelet Fraction Pct 7.7 % (0.9-11.2); Lymphocytes Absolute Auto 0.97 K/mm3 (0.9-3.2); Lymphocytes Percent Auto 13.6 % (18.3-44.2); Mean Corpuscular HGB Conc 33.9 g/dl (32-36); Mean Corpuscular Hemoglobin 35.2 pg (26-34); Mean Corpuscular Volume 103.7 fl (80-100); Mean Platelet Volume 11.1 fl (7.4-10.4); Monocytes Absolute Auto 0.6 K/mm3 (0.1-0.6); Monocytes Percent Auto 8.7 % (2.6-8.5); Neutrophils Absolute Auto 5.3 K/mm3 (1.3-6.7); Neutrophils Percent Auto 73.8 % (45.5-73.1); Platelet Count Result 95 k/mm3 (150-375); Red Cell Distribution Width 12.2 % (11.5-14.5); White Blood Count 7.1 K/mm3 (4.5-10.0)
[2019-10-22 04:58] LABS: Alanine Aminotransferase 72 U/L (4-50); Albumin Level 3.1 g/dL (3.5-5.1); Alkaline Phosphatase 200 U/L (38-126); Aspartate Amino Transferase 219 U/L (17-59); Blood Urea Nitrogen 5 mg/dL (9-20); Calcium 7.6 mg/dL (8.4-10.2); Carbon Dioxide 25 mmol/L (22-30); Chloride 95 mmol/L (98-107); Estimated CRCL calculation 87 ml/min; Estimated Glomerular Filt Rate > 60; Glucose 91 mg/dL (75-110); Magnesium 1.2 mg/dL (1.6-2.3); Phosphorus 2.2 mg/dL (2.5-4.5); Potassium 3.7 mmol/L (3.4-5.0); Sodium 132 mmol/L (137-145)
[2019-10-22] MEDS: metroNIDAZOLE 500 MG/ISO 100ML 500 MG/100 ML BAG 100 MG IVPB ×4 (09:22→23:57)
[2019-10-22] MEDS: SODIUM CHLORIDE 0.9% IV 1,000 ML 70 ML IV CONT (09:29)
[2019-10-22] MEDS: MAGNESIUM SULF 4 GM/WATER100ML 4 GM/100 ML BAG IVPB (09:30)
[2019-10-22] MEDS: LACTULOSE 20 GM/30 ML UDC PO (09:33)
[2019-10-22] MEDS: PANTOPRAZOLE SODIUM IV 40 MG VIAL IV PUSH ×2 (09:33→21:31)
[2019-10-22] MEDS: FOLIC ACID 1 MG/0.2 ML INJ IV PUSH (09:33)
[2019-10-22] MEDS: MAGNESIUM OXIDE 400 MG TABLET PO (09:34)
[2019-10-22] MEDS: THIAMINE HCL 200 MG/2 ML VIAL 100 MG IV PUSH (09:34)
[2019-10-22] MEDS: POTASSIUM/PHOSPHORUS/SODIUM 1.5 GM PACKET 1 PACKET PO (09:48)
--- NOTE | 2019-10-22 11:09 | PM.IMPN ---
Progress Note: A&P Assessment and Plan (1) Alcohol dependence with withdrawal: Code(s): F10.239 - Alcohol dependence with withdrawal, unspecified Status: Acute Assessment and Plan: Patient develop agitation on the evening on 10/20/19 felt to be alcohol withdrawal. He was moved to the ICU and placed on a Precedex drip. Weaned off Precedex drip last night. Remaining calm and appropriate. PT/OT. Okay to move out of IVC. (2) Acute upper gastrointestinal bleeding: Code(s): K92.2 - Gastrointestinal hemorrhage, unspecified Status: Acute Assessment and Plan: Patient was admitted but able to be downgraded from ICU to medical floor status per ED physician. Hgb 9.9 but dropped to 7.8. Hgb better today at 9.5. Has not required transfusion. Patient returned to ICU related to alcohol withdrawal. Patient had EGD 10/21/19 showing varices s/p banding. Continue with the Protonix IV and octreotide drip. Appreciate GI input (3) Colitis: Code(s): K52.9 - Noninfective gastroenteritis and colitis, unspecified Status: Acute Assessment and Plan: CT of Abd/Pelvis shownig mild diffuse wall thickening of the colon most likely related to hepatic colopathy. Patient is tender on exam so colitis being considered. Was on Rocephin and Flagyl added. Pain better today and mental status improved. (4) Cirrhosis: Qualifiers: Ascites presence: unspecified Hepatic cirrhosis type: alcoholic cirrhosis Qualified Code(s): K70.30 - Alcoholic cirrhosis of liver without ascites Code(s): K74.60 - Unspecified cirrhosis of liver Status: Acute Assessment and Plan: [place] patient with alcoholic cirrhosis. CT scan showing combination of cirrhosis and diffuse hepatic steatosis with secondary portal venous hypertension including recanalized umbilical vein and gastroesophageal collaterals. Small amount of ascites. Varices noted by EGD s/p banding. Continue Lactulose. Appreciate GI input. (5) Thrombocytopenia: Code(s): D69.6 - Thrombocytopenia, unspecified Status: Acute Assessment and Plan: Plt count low but improving. Plt count up to 95K today. Transfuse if evidence of recurrent bleeding. (6) Liver cancer: Code(s): C22.9 - Malignant neoplasm of liver, not specified as primary or secondary Status: Chronic Assessment and Plan: Patient may have liver cancer. He is followed by GI specialists at [facility]. (7) Anemia: Code(s): D64.9 - Anemia, unspecified Status: Chronic Assessment and Plan: Acute and chronic anemia. Acute process related to above. Hgb jumped to 9.5 today. Hgb has been stable in the 7-8 range but 9.5 today - lab error? Appears to have stopped bleeding. Continue to monitor H&H and platelets. (8) Alcoholism: Code(s): F10.20 - Alcohol dependence, uncomplicated Status: Acute Assessment and Plan: Abstaining from alcohol is imperative. Continue folate and thiamine. As above. Subjective Date/time seen: 10/22/19 11:09 Interval history: 54yo male with alcoholic cirrhosis here for nausea, vomiting and GI bleed. No issues overnight. Weaned off the Precedex yesterday. Patinet feels much better. More oriented. Eating better. Denies CP and SOB. No n/v. Feels weak. Feels dizzy but more of a chronic issues related to prior head trauma. Complains of chronic abd pain. Exam Narrative: Exam Narrative: Gen -thin male in NARD lying semi-recumbent in bed feeding himself breakfast Chest - few scattered rhonchi but overall good air exchange. CV - RRR S1/S2, tele showing occas sinus tachycardia Abd -soft. Scaphoid. mild diffuse tenderness without guarding - Sullivan secured with orange yellow urine in the bag Ext - No pedal edema Neuro - AO x4 (except month was Sep but then corrected himself) Skin - jaundice Objective Data Vital Signs Vital Signs: Vital Signs - 24 hr
--- NOTE | 2019-10-22 11:09 | WPDGIPROGNO ---
Progress Note: A&P Additional Plan Patient more alert today. Remains somewhat confused. No signs of GI bleeding actively. Physical exam reveals Vital Signs to be stable. Lungs are clear. Heart is without murmur. Abdomen is soft. Nontender. Labs WBC 7.1, hemoglobin 9.5, hematocrit 28, MCV 103. Protime 15.3. INR 1.2. Total bilirubin 8.0. AST 219, ALT 72, alk-phos 200, ammonia 37. Impression 1. Alcoholic cirrhosis. 2. Esophageal varices. Likely contributes to GI bleeding noted at admission. Responding well after esophageal banding yesterday. Octreotide can be tapered off at this time. Allow liquid diet to advance to soft diet. 3. Altered mental status. Patient may have alcohol withdrawal versus hepatic encephalopathy. Plan to continue lactulose. 4. Question of hepatic cancer. We have no records to support this of present. Plan for patient to be transferred to [facility] when bed is available. Subjective Date/time seen: 10/22/19 11:09 Objective Data Vital Signs Vital Signs: Vital Signs - 24 hr 10/21/19 12:00 10/21/19 14:00 10/21/19 16:00 Temperature 35.1 C L Pulse Rate 98 99 91 Pulse Rate [Left Radial] Respiratory Rate 14 16 10 L Blood Pressure 104/75 104/67 90/66 L Pulse Oximetry 100 100 98 10/21/19 18:00 10/21/19 20:00 10/21/19 20:15 Temperature 36.8 C Pulse Rate 60 80 Pulse Rate [Left Radial] 57 L Respiratory Rate 15 16 Blood Pressure 105/78 130/63 Pulse Oximetry 100 99 100 10/22/19 00:00 10/22/19 04:00 10/22/19 06:00 Temperature 36.7 C 36.6 C Pulse Rate 70 75 76 Pulse Rate [Left Radial] 57 L 75 Respiratory Rate 16 16 16 Blood Pressure 104/61 124/78 Pulse Oximetry 96 96 95 Intake/Output Intake/Output: Intake & Output 10/19/19 10/20/19 10/21/19 10/22/19 23:59 23:59 23:59 23:59 Intake Total 1300 4350 2980 1560 Output Total 2000 600 2840 450 Balance -700 3750 140 1110 Meds/Results Medications: Active Medications Generic Name Dose Route Start Last Admin Trade Name Freq PRN Reason Stop Dose Admin Folic Acid 1 mg 10/20/19 09:00 10/22/19 09:33 Folic Acid Inj IV PUSH 1 mg QAM SHARAD Administration Octreotide Acetate 0.5 mg/ 100 mls @ 10 mls/hr 10/18/19 20:30 10/22/19 05:56 Dextrose IV CONT 0.025 mg/hr .Q10H SHARAD 5 mls/hr Administration 0.05 MG/HR Ceftriaxone Sodium/Dextrose 1 gm in 50 mls @ 100 mls/hr 10/19/19 21:00 10/21/19 23:00 Rocephin 1 Gm/D5w 50 Ml IVPB Infused Q24H SHARAD Infusion Dexmedetomidine HCl 400 mcg in 100 mls @ 0 mls/hr 10/20/19 21:50 10/21/19 15:00 Precedex 400 Mcg/D5w 100 Ml IV CONT 0 mcg/kg/hr .Q0M SHARAD 0 mls/hr Titration Protocol 0 MCG/KG/HR Metronidazole 500 mg in 100 mls @ 100 mls/hr 10/21/19 23:00 10/22/19 09:22 Flagyl 500 Mg/Iso Soln 100 Ml IVPB 100 mls/hr Q6HR SHARAD Administration Lactulose 20 gm 10/20/19 09:00 10/22/19 09:33 Lactulose PO 20 gm QAM SHARAD Administration Lorazepam 1 mg 10/19/19 20:58 10/20/19 18:46 Ativan Inj IV PUSH 1 mg Q6H PRN Administration Anxiety Magnesium Oxide 400 mg 10/20/19 10:15 10/22/19 09:34 Mag-Ox PO 400 mg QAM SHARAD Administration Ondansetron HCl 4 mg 10/19/19 15:50 10/19/19 21:26 Zofran Inj IV PUSH 4 mg Q4H PRN Administration Nausea Pantoprazole Sodium 40 mg 10/19/19 21:00 10/22/19 09:33 Protonix Iv IV PUSH 40 mg Q12HR SHARAD Administration Phenol 1 spray 10/19/19 20:58 Chloraseptic Cade MUCOUS MEM PRN PRN Sore Throat Thiamine HCl 100 mg 10/20/19 09:00 10/22/19 09:34 Thiamine Hcl Inj IV PUSH 100 mg QAM SHARAD Administration Radiology Results: ITS Impressions Abdomen X-Ray 10/18/19 19:37 IMPRESSION: 1. Nasogastric tube tip in the stomach. Abdomen/Pelvis CT 10/19/19 20:33 IMPRESSION: 1. Combination of cirrhosis and diffuse hepatic steatosis with secondary portal venous hypertension including recanalized umbilical ve
--- NOTE | 2019-10-22 12:22 | WPDINTPN ---
Progress Note: A&P Assessment and Plan (1) Alcohol dependence with withdrawal: Code(s): F10.239 - Alcohol dependence with withdrawal, unspecified Status: Acute Assessment and Plan: Pt was transferred to ICU on 10/21/2019 for alcohol withdrawal and agitation requiring Precedex infusion. - Is OFF precedex, doing well this am - he is calm and appropriate. (2) Acute upper gastrointestinal bleeding: Code(s): K92.2 - Gastrointestinal hemorrhage, unspecified Status: Acute Assessment and Plan: patient of the EGD showing varices, status post banding on 10/21/2019. - continue PPI and octreotide per GI (3) Cirrhosis: Qualifiers: Ascites presence: unspecified Hepatic cirrhosis type: alcoholic cirrhosis Qualified Code(s): K70.30 - Alcoholic cirrhosis of liver without ascites Code(s): K74.60 - Unspecified cirrhosis of liver Status: Acute Assessment and Plan: continue lactulose CT scan showing combination of cirrhosis and diffuse hepatic steatosis with secondary portal venous hypertension including recanalized umbilical vein and gastroesophageal collaterals. There is also mild diffuse wall thickening of the colon most likely related to hepatic colopathy. Patient is tender on exam so should consider colitis. Currently on Rocephin and Flagyl. (4) Alcoholism: Code(s): F10.20 - Alcohol dependence, uncomplicated Status: Acute Assessment and Plan: continue thiamine and folic acid (5) Thrombocytopenia: Code(s): D69.6 - Thrombocytopenia, unspecified Status: Acute Assessment and Plan: likely due to Alcoholism and cirrhosis Improving, continue to monitor (6) Anemia: Code(s): D64.9 - Anemia, unspecified Status: Chronic Assessment and Plan: Stable and improved - continue to monitor (7) Liver cancer: Code(s): C22.9 - Malignant neoplasm of liver, not specified as primary or secondary Status: Chronic Assessment and Plan: Patient may have liver cancer. Is followed by GI specialists at [facility]. Additional Plan D/w with patient and updated him with his condition and plan of care Code Status: Full code Critical care time spent: 32 minutes Due to a high probability of clinically significant, life threatening deterioration, the patient required my highest level of preparedness to intervene emergently and I personally spent this critical care time directly and personally managing the patient. This critical care time included obtaining a history; examining the patient; pulse oximetry; ordering and review of studies; arranging urgent treatment with development of a management plan; evaluation of patient's response to treatment; frequent reassessment; and discussions with other providers. It was exclusive of separately billable procedures and treating other patients and teaching time. Please see Assessment and Plan section and the rest of the note for further information on patient assessment and treatment Subjective Date/time seen: 10/22/19 12:22 REASON FOR CONSULT: alcohol withdrawal requiring Precedex infusion, GI bleed 10/22/2019: Patient seen examined this morning in the ICU. Patient is more awake, alert and oriented and feels much better. patient is off Precedex infusion. Denies any chest pain, shortness of breath, abdominal pain, nausea vomiting. Patient has been complaining of generalized bodyaches Review of Systems Review of Systems: All systems reviewed & are unremarkable except as noted in HPI and below Exam Const: General: comfortable and no acute distress HENMT: Mouth: Yes moist mucous membranes Eyes: Sclera: sclerae normal Pupils: Equal, round and reactive pupils present Neck: Neck: no JVD Resp: Effort & Inspection: normal respiratory effort Auscultation: clear to auscultation bilaterally and rhonchi Cardio: Rate: regular rate and tachycardic GI: Inspection: n
--- NOTE | 2019-10-22 13:13 | WPDANESPN ---
Anes - Prog Note Post-Op Date/Time: 10/22/19 13:13 Cardiovascular status: normal Respiratory status: normal Airway patency: baseline Mental status: baseline Post-Op hydration status: normal Vital Signs: Last Vital Signs Temp 36.1 C L 10/22/19 08:00 Pulse 96 10/22/19 08:00 Resp 18 10/22/19 08:00 BP 124/84 10/22/19 08:00 Pulse Ox 100 10/22/19 08:00 I/O: Intake & Output 10/21/19 10/22/19 10/22/19 23:59 07:59 15:59 Intake Total 6832 697 3090 Output Total 1800 450 Balance -699 474 0930 Laboratory Tests 10/22/19 04:19 10/22/19 04:19 10/21/19 10/22/19 10/22/19 18:07 04:19 04:19 WBC 7.1 RBC 2.70 L Hgb 9.5 L Hct 28.0 L MCV 103.7 H MCH 35.2 H MCHC 33.9 RDW 12.2 Plt Count 95 L D MPV 11.1 H Immature Gran % (Auto) 0.8 H Neut % (Auto) 73.8 H Lymph % (Auto) 13.6 L [place] % (Auto) 8.7 H Eos % (Auto) 2.1 Baso % (Auto) 1.0 Lymph # (Auto) 0.97 [place] # (Auto) 0.6 Eos # (Auto) 0.2 Baso # (Auto) 0.1 Abs Immat Gran (auto) 0.06 H Absolute Neuts (auto) 5.3 Absolute Nucleated RBC 0.0 Nucleated RBC % 0.0 % Immature Plt Fraction 7.7 Sodium 132 L 132 L Potassium 3.8 3.7 Chloride 94 L 95 L Carbon Dioxide 28 25 BUN 3 L 5 L Creatinine 0.50 L 0.50 L Estim Creat Clear Calc 87 87 Estimated GFR > 60 > 60 Glucose 86 91 Calcium 7.7 L 7.6 L Phosphorus 2.6 2.2 L Magnesium 1.2 L Total Bilirubin 8.0 H AST 219 H ALT 72 H Alkaline Phosphatase 200 H Total Protein 7.0 Albumin 3.1 L 3.1 L Microbiology 10/21/19 03:04 Urine Catheterized Urine Culture - Final Post-procedural complaints: none Patient Feedback: Patient satisfied with anesthetic care.
--- NOTE | 2019-10-22 13:18 | PCDIET ---
ICU Rounding Note: Patient now on regular diet. Consumed 75% of breakfast meal today. Last recorded weight is 42.5kg. Recommend obtaining new weight. Bowel Motility: +Liquid stools (patient on Lactulose). Labs Reviewed: BUN (5), Cr (0.5), Na (132), Alb (3.1), Ca (7.6), PO4 (2.2), Mg (1.2) Meds Noted: Rocephin, Lactulose, Octreotide, Folic Acid, Protonix, Mag-Ox, IV magnesium sulfate, Flagyl, Thiamine, NS @ 70mL/hr Additional Notes: s/p KCl and Phos-NaK. Skin intact. Recommend continuing regular diet and replacing electrolytes, as needed. Will likely recommend oral supplements in next few days. Following daily in ICU rounds. Assessing/reassessing every 3 days.
--- NOTE | 2019-10-22 13:45 | PC.NURSE ---
This patient, Gregor Patel, was received from IMU on 10/22/19 at 1345. Personal belongings list checked and signed. Patient/family oriented to unit policies and routines
--- NOTE | 2019-10-22 14:13 | PC.NURSE ---
Pt transferred to [facility] on 10/22/2019 at 1345. Report given to Devora CHOWDHURY. vitals stable no signs of distress noted
[2019-10-23] VITALS (8 sets, daily range): BP systolic 105–112; BP diastolic 56–65; PULSE 71–83; RESP 16–18; TEMP 37.3–37.5; O2SAT 98
[2019-10-23] MEDS: metroNIDAZOLE 500 MG/ISO 100ML 500 MG/100 ML BAG 100 MG IVPB ×3 (05:45→18:04)
[2019-10-23 06:30] LABS: Hematocrit 24.9 % (42.0-52.0); Hemoglobin 8.4 g/dL (14.0-18.0); Mean Corpuscular HGB Conc 33.7 g/dl (32-36); Mean Corpuscular Hemoglobin 35.4 pg (26-34); Mean Corpuscular Volume 105.1 fl (80-100); Mean Platelet Volume 10.5 fl (7.4-10.4); Platelet Count Result 115 k/mm3 (150-375); Red Blood Count 2.37 M/mm3 (4.6-6.20); White Blood Count 7.3 K/mm3 (4.5-10.0)
[2019-10-23 06:47] LABS: Blood Urea Nitrogen 4 mg/dL (9-20); CRP 2.8 mg/dL (<1.0); Calcium 7.8 mg/dL (8.4-10.2); Carbon Dioxide 26 mmol/L (22-30); Chloride 94 mmol/L (98-107); Estimated CRCL calculation 87 ml/min; Estimated Glomerular Filt Rate > 60; Glucose 103 mg/dL (75-110); Magnesium 1.9 mg/dL (1.6-2.3); Phosphorus 1.9 mg/dL (2.5-4.5); Potassium 2.9 mmol/L (3.4-5.0); Sodium 133 mmol/L (137-145)
[2019-10-23] MEDS: POTASSIUM PHOS,M-BASIC-D-BASIC 20 MMOL in SODIUM CHLORIDE 0.9% IV 250 ML 62.5 MMOL IVPB (08:19)
[2019-10-23] MEDS: POTASSIUM CHLORIDE 20 MEQ TABLET 40 MEQ PO (08:19)
[2019-10-23] MEDS: MAGNESIUM OXIDE 400 MG TABLET PO (08:20)
[2019-10-23] MEDS: LACTULOSE 20 GM/30 ML UDC PO (08:20)
--- NOTE | 2019-10-23 09:24 | WPDGIPROGNO ---
Progress Note: A&P Additional Plan Patient more alert today. He remains confused at times. Difficult to know if he understands. No signs of additional bleeding noted. He denies abdominal pain. Physical exam reveals Vital Signs to be stable. Lungs are clear. Abdomen is soft and nontender. Laboratory tests reveal he WBC 7.3, hemoglobin 8.4, hematocrit 24.9, MCV 105. Protime 15.3, INR 1.2. Total bilirubin 8.0, AST 219, ALT 72, alk-phos 200. Ammonia 37. Impression 1. Alcoholism. 2. alcoholic cirrhosis. 3. Esophageal varices status post banding. 4. Confusion. This may represent hepatic encephalopathy versus alcohol withdrawal. Plan at this time octreotide can be discontinued. Diet advance to a regular diet. Continue lactulose empirically. When his vital signs are stable of beta-kevin may be of some benefit given his esophageal varices. Supportive care for now. Anticipate follow-up with [facility] hepatology Service. Subjective Date/time seen: 10/23/19 09:24 Objective Data Vital Signs Vital Signs: Vital Signs - 24 hr 10/22/19 10:00 10/22/19 12:00 10/22/19 13:45 Temperature 36.6 C 36.6 C Pulse Rate 105 H 109 H 102 H Pulse Rate [Left Radial] Respiratory Rate 20 20 18 Blood Pressure 100/74 108/66 103/63 Pulse Oximetry 97 97 100 10/22/19 16:00 10/22/19 20:00 10/22/19 22:00 Temperature 37.2 C Pulse Rate 81 Pulse Rate [Left Radial] 88 85 Respiratory Rate 18 Blood Pressure 105/60 Pulse Oximetry 98 10/23/19 00:00 10/23/19 04:00 10/23/19 05:55 Temperature 37.3 C Pulse Rate 71 Pulse Rate [Left Radial] 81 77 Respiratory Rate 16 Blood Pressure 105/60 106/56 L Pulse Oximetry 98 Intake/Output Intake/Output: Intake & Output 10/20/19 10/21/19 10/22/19 10/23/19 23:59 23:59 23:59 23:59 Intake Total 4350 2980 2840 350 Output Total 600 2840 550 50 Balance 3750 140 2290 300 Meds/Results Medications: Active Medications Generic Name Dose Route Start Last Admin Trade Name Freq PRN Reason Stop Dose Admin Folic Acid 1 mg 10/20/19 09:00 10/22/19 09:33 Folic Acid Inj IV PUSH 1 mg QAM SHARAD Administration Ceftriaxone Sodium/Dextrose 1 gm in 50 mls @ 100 mls/hr 10/19/19 21:00 10/22/19 21:58 Rocephin 1 Gm/D5w 50 Ml IVPB Infused Q24H SHARAD Infusion Metronidazole 500 mg in 100 mls @ 100 mls/hr 10/21/19 23:00 10/23/19 06:45 Flagyl 500 Mg/Iso Soln 100 Ml IVPB Infused Q6HR SHARAD Infusion Potassium Phosphate 20 mmol/ 256.6667 mls @ 62.5 mls/hr 10/23/19 07:25 10/23/19 08:19 Sodium Chloride IVPB 10/23/19 11:31 62.5 mls/hr ONCE ONE Administration Lactulose 20 gm 10/20/19 09:00 10/23/19 08:20 Lactulose PO 20 gm QAM SHARAD Administration Lorazepam 1 mg 10/19/19 20:58 10/20/19 18:46 Ativan Inj IV PUSH 1 mg Q6H PRN Administration Anxiety Magnesium Oxide 400 mg 10/20/19 10:15 10/23/19 08:20 Mag-Ox PO 400 mg QAM SHARAD Administration Ondansetron HCl 4 mg 10/19/19 15:50 10/19/19 21:26 Zofran Inj IV PUSH 4 mg Q4H PRN Administration Nausea Pantoprazole Sodium 40 mg 10/19/19 21:00 10/22/19 21:31 Protonix Iv IV PUSH 40 mg Q12HR SHARAD Administration Phenol 1 spray 10/19/19 20:58 Chloraseptic [place] MUCOUS MEM PRN PRN Sore Throat Thiamine HCl 100 mg 10/20/19 09:00 10/22/19 09:34 Thiamine Hcl Inj IV PUSH 100 mg QAM SHARAD Administration Radiology Results: ITS Impressions Abdomen X-Ray 10/18/19 19:37 IMPRESSION: 1. Nasogastric tube tip in the stomach. Abdomen/Pelvis CT 10/19/19 20:33 IMPRESSION: 1. Combination of cirrhosis and diffuse hepatic steatosis with secondary portal venous hypertension including recanalized umbilical vein and gastroesophageal collaterals. 2. Mild diffuse wall thickening of the colon most likely related to hepatic colopathy although differential includes colitis which could be infectious, inflammatory or ischemic in etiol
[2019-10-23] MEDS: PANTOPRAZOLE SODIUM IV 40 MG VIAL IV PUSH ×2 (10:10→20:20)
[2019-10-23] MEDS: FOLIC ACID 1 MG/0.2 ML INJ IV PUSH (10:10)
[2019-10-23] MEDS: THIAMINE HCL 200 MG/2 ML VIAL 100 MG IV PUSH (10:10)
--- NOTE | 2019-10-23 11:48 | PCNFU ---
Nutrition Follow-Up Complete: Inadequate oral intake related to liver disease as evidenced by NPO status, BMI 14.7, significant weight loss. Patient to meet estimated nutritional needs. Goal:Progressing towards goal. Pt current nutrition is Regular,Level 7. Nutrition recommendation: Agree Last recorded weight is 42.5 kg. Bowel Motility:+BM Labs Reviewed: BUN 4,Cr 0.5,Na 133,K 2.9 Meds Noted:Thiamine,Folic Acid, Lactulose Additional Notes: Diet has advanced to a regular diet, intake 50-100% of meals- bkfast today biscuit and gravy, OJ and eggs. Follow up weekly.
--- NOTE | 2019-10-23 11:53 | PM.IMPN ---
Progress Note: A&P Assessment and Plan (1) Alcohol dependence with withdrawal: Code(s): F10.239 - Alcohol dependence with withdrawal, unspecified Status: Acute Assessment and Plan: Patient develop agitation on the evening on 10/20/19 felt to be alcohol withdrawal. He was moved to the ICU and placed on a Precedex drip. Weaned off Precedex drip 10/21/19. Remaining calm and appropriate. PT/OT. (2) Acute upper gastrointestinal bleeding: Code(s): K92.2 - Gastrointestinal hemorrhage, unspecified Status: Acute Assessment and Plan: Patient was admitted but able to be downgraded from ICU to medical floor status per ED physician. Hgb 9.9 but dropped to 7.8 but since has remained stable in the 7-8 range. Has not required transfusion. Patient returned to ICU related to alcohol withdrawal. Patient had EGD 10/21/19 showing varices s/p banding. [place] the GI bleeding from the varices. Treated with octreotide and Protonix. Appreciate GI input. (3) Colitis: Code(s): K52.9 - Noninfective gastroenteritis and colitis, unspecified Status: Acute Assessment and Plan: CT of Abd/Pelvis shownig mild diffuse wall thickening of the colon most likely related to hepatic colopathy. Patient is tender on exam so colitis felt clinically appropraite. Flagyl added with improvement. Continue the same. (4) Cirrhosis: Qualifiers: Ascites presence: unspecified Hepatic cirrhosis type: alcoholic cirrhosis Qualified Code(s): K70.30 - Alcoholic cirrhosis of liver without ascites Code(s): K74.60 - Unspecified cirrhosis of liver Status: Acute Assessment and Plan: [place] patient with alcoholic cirrhosis. CT scan showing combination of cirrhosis and diffuse hepatic steatosis with secondary portal venous hypertension including recanalized umbilical vein and gastroesophageal collaterals. Small amount of ascites. Varices noted by EGD s/p banding. Continue Lactulose. Appreciate GI input. (5) Thrombocytopenia: Code(s): D69.6 - Thrombocytopenia, unspecified Status: Acute Assessment and Plan: Plt count low but improving slowly. Plt count up to 115K today. Transfuse if evidence of recurrent bleeding. (6) Liver cancer: Code(s): C22.9 - Malignant neoplasm of liver, not specified as primary or secondary Status: Chronic Assessment and Plan: Patient may have liver cancer. He is followed by GI specialists at [facility]. Follow up with Dr Rivera after discahrge. (7) Anemia: Code(s): D64.9 - Anemia, unspecified Status: Chronic Assessment and Plan: Acute and chronic anemia. Acute process related to above. Hgb jumped to 9.5 but back down to 8.4. Hgb has been stable in the 7-8 range so suspect 9.5 was a lab error. No evidence of recurrent bleeding. Continue to monitor H&H and platelets. (8) Alcoholism: Code(s): F10.20 - Alcohol dependence, uncomplicated Status: Acute Assessment and Plan: Abstaining from alcohol is imperative. Patient educated about the benefits of abstaining from alcohol. Continue folate and thiamine. As above. Subjective Date/time seen: 10/23/19 11:53 Interval history: 54yo male with alcoholic cirrhosis here for nausea, vomiting and GI bleed. Slept poorly but not uncommon for this patient. Eating better. Walking in ghosh with therapy and walked the length of the ghosh. BM more formed. Abd pain better. His GI Specialist is Shakir Rivera Exam Narrative: Exam Narrative: Gen -thin male in NARD sitting up in chair Chest - CTA bilat, nml RR CV - RRR S1/S2 Abd -soft. Scaphoid. mild tenderness. +BS Ext - No pedal edema Neuro - alert and appropriate Skin - jaundice Objective Data Vital Signs Vital Signs: Vital Signs - 24 hr 10/22/19 12:00 10/22/19 13:45 10/22/19 16:00 Temperature 98 F 98 F Pulse Rate 109 H 102 H Pulse Rate [Left
[2019-10-24] VITALS: BP 112/65; PULSE 78
[2019-10-24] MEDS: metroNIDAZOLE 500 MG/ISO 100ML 500 MG/100 ML BAG 100 MG IVPB ×3 (00:16→11:10)
[2019-10-24 04:00] VITALS: PULSE 86
[2019-10-24 06:00] VITALS: BP 126/80; PULSE 88; RESP 18; TEMP 36.8; O2SAT 100
[2019-10-24 06:49] LABS: Albumin Level 2.7 g/dL (3.5-5.1); Blood Urea Nitrogen 3 mg/dL (9-20); Calcium 7.9 mg/dL (8.4-10.2); Carbon Dioxide 22 mmol/L (22-30); Chloride 101 mmol/L (98-107); Estimated CRCL calculation 87 ml/min; Estimated Glomerular Filt Rate > 60; Glucose 115 mg/dL (75-110); Phosphorus 2.2 mg/dL (2.5-4.5); Potassium 3.1 mmol/L (3.4-5.0); Sodium 134 mmol/L (137-145)
--- NOTE | 2019-10-24 08:49 | WPDGIPROGNO ---
Progress Note: A&P Additional Plan Patient appears more alert this morning. He denies any significant abdominal pain. Tolerating diet. Physical exam reveals Vital Signs to be stable. He is afebrile. HEENT exam reveals scleral icterus. Lungs are clear to auscultation. Heart is without murmur. Abdomen is soft. Hepatomegaly appreciated mild nonspecific tenderness described. Labs reveal WBC 7.3, hemoglobin 8.4, hematocrit 24.9, MCV 105. Stable at this time. Total bilirubin 8.0. AST 219, ALT 72, alk-phos 200, albumin 2.7. Impression 1. Alcoholic cirrhosis of liver. 2. Esophageal varices. Status post banding. No additional bleeding reported. 3. Alcohol abuse 4. Un- verified history of possible hepatic cancer. Plan is to continue supportive care. Plan for patient to follow up with [facility] hepatology Service. Advance diet as tolerated. Consider beta-kevin prophylaxis for variceal bleeding. Subjective Date/time seen: 10/24/19 08:49 Objective Data Vital Signs Vital Signs: Vital Signs - 24 hr 10/23/19 12:00 10/23/19 14:59 10/23/19 16:00 Temperature 37.5 C Pulse Rate 83 Pulse Rate [Left Radial] 76 72 Respiratory Rate 16 Blood Pressure 112/61 Pulse Oximetry 98 10/23/19 21:00 10/23/19 22:00 10/24/19 00:00 Temperature 37.4 C Pulse Rate 83 Pulse Rate [Left Radial] 80 78 Respiratory Rate 18 Blood Pressure 112/65 112/65 112/65 Pulse Oximetry 98 10/24/19 04:00 10/24/19 06:00 Temperature 36.8 C Pulse Rate 88 Pulse Rate [Left Radial] 86 Respiratory Rate 18 Blood Pressure 126/80 Pulse Oximetry 100 Intake/Output Intake/Output: Intake & Output 10/21/19 10/22/19 10/23/19 10/24/19 23:59 23:59 23:59 23:59 Intake Total 2980 2840 2475.9997 600 Output Total 2840 550 250 Balance 140 2290 2225.9997 600 Meds/Results Medications: Active Medications Generic Name Dose Route Start Last Admin Trade Name Freq PRN Reason Stop Dose Admin Folic Acid 1 mg 10/20/19 09:00 10/23/19 10:10 Folic Acid Inj IV PUSH 1 mg QAM SHARAD Administration Ceftriaxone Sodium/Dextrose 1 gm in 50 mls @ 100 mls/hr 10/19/19 21:00 10/23/19 20:52 Rocephin 1 Gm/D5w 50 Ml IVPB Infused Q24H SHARAD Infusion Metronidazole 500 mg in 100 mls @ 100 mls/hr 10/21/19 23:00 10/24/19 07:22 Flagyl 500 Mg/Iso Soln 100 Ml IVPB Infused Q6HR SHARAD Infusion Lactulose 20 gm 10/20/19 09:00 10/23/19 08:20 Lactulose PO 20 gm QAM SHARAD Administration Lorazepam 1 mg 10/19/19 20:58 10/20/19 18:46 Ativan Inj IV PUSH 1 mg Q6H PRN Administration Anxiety Magnesium Oxide 400 mg 10/20/19 10:15 10/23/19 08:20 Mag-Ox PO 400 mg QAM SHARAD Administration Ondansetron HCl 4 mg 10/19/19 15:50 10/19/19 21:26 Zofran Inj IV PUSH 4 mg Q4H PRN Administration Nausea Pantoprazole Sodium 40 mg 10/19/19 21:00 10/23/19 20:20 Protonix Iv IV PUSH 40 mg Q12HR SHARAD Administration Phenol 1 spray 10/19/19 20:58 Chloraseptic [place] MUCOUS MEM PRN PRN Sore Throat Thiamine HCl 100 mg 10/20/19 09:00 10/23/19 10:10 Thiamine Hcl Inj IV PUSH 100 mg QAM SHARAD Administration Radiology Results: ITS Impressions Abdomen X-Ray 10/18/19 19:37 IMPRESSION: 1. Nasogastric tube tip in the stomach. Abdomen/Pelvis CT 10/19/19 20:33 IMPRESSION: 1. Combination of cirrhosis and diffuse hepatic steatosis with secondary portal venous hypertension including recanalized umbilical vein and gastroesophageal collaterals. 2. Mild diffuse wall thickening of the colon most likely related to hepatic colopathy although differential includes colitis which could be infectious, inflammatory or ischemic in etiology. Labs Labs: Laboratory Results - last 24 hr 10/24/19 05:52 Sodium 134 L Potassium 3.1 L Chloride 101 Carbon Dioxide 22 BUN 3 L Creatinine 0.50 L Estim Creat Clear Calc 87 Estimated GFR > 60 Glucose 115 H
--- NOTE | 2019-10-24 09:08 | PM.DS ---
DS: Diagnosis Admitting Diagnosis Admitting Diagnosis: Gastrointestinal hemorrhage, unspecified Discharge Diagnosis (1) Alcohol dependence with withdrawal: Code(s): F10.239 - Alcohol dependence with withdrawal, unspecified Status: Acute Assessment and Plan: Patient develop agitation on the evening on 10/20/19 felt to be alcohol withdrawal. He was moved to the ICU and placed on a Precedex drip. Weaned off Precedex drip by 10/21/19. Mental status returned to normal. (2) Acute upper gastrointestinal bleeding: Code(s): K92.2 - Gastrointestinal hemorrhage, unspecified Status: Acute Assessment and Plan: Patient was admitted to ICU but able to be downgraded to medical floor status per ED physician. Hgb 9.9 but dropped to 7.8 but since has remained stable in the 7-8 range. Has not required transfusion. Patient returned to ICU related to alcohol withdrawal as mentioned above. Patient had EGD 10/21/19 showing varices that were banded. It was felt the GI bleeding from the varices. Treated with octreotide and Protonix. (3) Colitis: Code(s): K52.9 - Noninfective gastroenteritis and colitis, unspecified Status: Acute Assessment and Plan: CT of Abd/Pelvis showing mild diffuse wall thickening of the colon most likely related to hepatic colopathy. Patient is tender on exam so colitis felt to be a clinical concern. Was on Rocephin and Flagyl added. Patient had clinical improvement. Doubt SBP since only a small amount of ascites in the pevis by CT. (4) Cirrhosis: Qualifiers: Ascites presence: unspecified Hepatic cirrhosis type: alcoholic cirrhosis Qualified Code(s): K70.30 - Alcoholic cirrhosis of liver without ascites Code(s): K74.60 - Unspecified cirrhosis of liver Status: Acute Assessment and Plan: [place] patient with alcoholic cirrhosis. CT scan showing combination of cirrhosis and diffuse hepatic steatosis with secondary portal venous hypertension including recanalized umbilical vein and gastroesophageal collaterals. Small amount of ascites. Varices noted by EGD s/p banding. Treated with Lactulose. (5) Thrombocytopenia: Code(s): D69.6 - Thrombocytopenia, unspecified Status: Acute Assessment and Plan: Plt count low at 66K on admission felt related to sequestration. Plt count slowly improved up to 115K prior to discharge. (6) Liver cancer: Code(s): C22.9 - Malignant neoplasm of liver, not specified as primary or secondary Status: Chronic Assessment and Plan: Patient may have liver cancer. He is followed by GI specialists at [facility]. He was advised to follow up with Dr Rivera after discharge. (7) Anemia: Code(s): D64.9 - Anemia, unspecified Status: Chronic Assessment and Plan: Acute and chronic anemia. Acute process related to above. Hgb jumped to 9.5 but back down to 8.4. Hgb has been stable in the 7-8 range so suspect 9.5 was a lab error. No evidence of recurrent bleeding. (8) Alcoholism: Code(s): F10.20 - Alcohol dependence, uncomplicated Status: Acute Assessment and Plan: Abstaining from alcohol is imperative. Patient educated about the benefits of abstaining from alcohol. Treated with folate and thiamine. DS: Summary Hospital Course Reason for hospitalization: 54yo male here for nausea and found to have GI bleed from varices and developed alcohol withdrawal. please see H&P for details Hospital Course: As above Status at Discharge Functional status at discharge: uses cane/walker Overall status at discharge: patient is back to baseline Time Spent with Patient Time attestation: Total time spent providing and/or coordinating discharge services:36 minutes Time spent: Greater than 30 minutes Exam Narrative: Exam Narrative: Patient feels well. Walking in halls. States he is going to follow up with AA. Still with loose stool
[2019-10-24] MEDS: MAGNESIUM OXIDE 400 MG TABLET PO (09:14)
[2019-10-24] MEDS: LACTULOSE 20 GM/30 ML UDC PO (09:14)
[2019-10-24] MEDS: FOLIC ACID 1 MG/0.2 ML INJ IV PUSH (09:14)
[2019-10-24] MEDS: THIAMINE HCL 200 MG/2 ML VIAL 100 MG IV PUSH (09:14)
[2019-10-24] MEDS: POTASSIUM CHLORIDE 20 MEQ PACKET (FOR LIQUID) 40 MEQ PO (09:14)
[2019-10-24] MEDS: PANTOPRAZOLE SODIUM IV 40 MG VIAL IV PUSH (09:15)
[2019-10-24] MEDS: POTASSIUM/PHOSPHORUS/SODIUM 1.5 GM PACKET 1 PACKET PO (09:46)
[2019-10-24 18:02] LABS: Alpha Fetoprotein Tumor Marker 6.5 ng/mL (<6.1)
== END 2019-10-24 14:40 | disposition home or self-care (01) | DRG 280 ==
LOC: ANHED 10-19 16:05 → ANH2MED 10-19 17:05 → ANHICU 10-20 22:21 → ANH3MEDSUR 10-22 13:55
PROVIDERS: Emergency Medicine; Internal Medicine Critical Care Medicine; Internal Medicine Gastroenterology; Nurse Practitioner; Admitting Provider Internal Medicine; Emergency Provider Emergency Medicine; PCP Family Medicine; Visit Provider Internal Medicine
PROC: 0DJ08ZZ Inspection of Upper Intestinal Tract, Via Natural or Artificial Opening Endoscopic (ICD-10-PCS; CPT 43235; principal; 2019-10-21 09:00)
DX: K70.30 Alcoholic cirrhosis of liver without ascites (principal); F10.239 Alcohol dependence with withdrawal, unspecified; I85.11 Secondary esophageal varices with bleeding; Z28.21 Immunization not carried out because of patient refusal; F17.210 Nicotine dependence, cigarettes, uncomplicated; D69.6 Thrombocytopenia, unspecified; C22.9 Malignant neoplasm of liver, not specified as primary or secondary; D63.0 Anemia in neoplastic disease; D53.9 Nutritional anemia, unspecified; R47.1 Dysarthria and anarthria; K30 Functional dyspepsia; K76.0 Fatty (change of) liver, not elsewhere classified; K52.9 Noninfective gastroenteritis and colitis, unspecified; K72.90 Hepatic failure, unspecified without coma
CPT/HCPCS: 36415; 74177; 80048; 80053; 80069; 82105; 82140; 83690; 83735; 84100; 85014; 85018; 85025; 85027; 85055; 85610; 85730; 86140; 86850; 86900; 86901; 87086; 96361; 96365; 96366; 96367; 96368; 96375; 96376; 97110; 97116; 97161; 97165; 97530; 97535; 99285; A9270; C9113; G0378; G0379; J0171; J0696; J2001; J2060; J2270; J2354; J2405; J2550; J2704; J3411; J3475; J3480; J7030; J7050; J7120; Q9967